=== PATIENT | female | born 1945 | race Caucasian/White ===

== ENCOUNTER 2021-08-28 11:25 | Emergency (ER) | payer OTHER ==
[2021-08-28 11:38] VITALS: BP 166/73; PULSE 74; TEMP 97.8
[2021-08-28] MEDS ORDERED: ACETAMINOPHEN 500 MG TABLET (FP) PO ONE (11:47)
== END 2021-08-28 14:00 | disposition home or self-care (01) ==
LOC: JER 11:25
DX: S80.02XA Contusion of left knee, initial encounter (principal); W01.0XXA Fall on same level from slipping, tripping and stumbling without subsequent striking against object, initial encounter
CPT/HCPCS: 73562-TC-LT-FY; 99283-25